=== PATIENT | female | born 1980 | race Caucasian/White ===

== ENCOUNTER → 2017-08-28 | Outpatient (CLI) | payer MEDICAID ==
[~2017-08-28] MED LIST: AMOXICILLIN 50500 MG PO; IBUPROFEN800 MG PO; IRON TABLETS325 MG OR; MOTRIN 400MG.400 MG PO; PRENATAL1 TA1 PO; PROZAC 20MG CAP20 MG PO; ZANTAC 150150 MG PO
[2017-08-28 17:10] LABS: LYMPH # 3.4 K/mm3 (0.7-4.5); LYMPH % 30.4 % (10-50.0)
[2017-08-28 17:18] LABS: HEMOGLOBIN 14.5 g/dL (12.2-16.2)
[2017-08-28 17:51] LABS: BUN 16 mg/dL (7-18)
[2017-08-28 18:01] LABS: GFR (ESTIMATED) 71 ML/MIN (59-)
[2017-08-30 08:42] LABS: Vitamin D, 25-Hydroxy 33.9 ng/mL (30.0-100.0)
[2017-08-30 10:39] LABS: Folate (Folic Acid) 10.9 ng/mL (>3.0)
== END ==
LOC: LAB 16:54
PROVIDERS: Physician Assistant
DX: Z00.00 Encounter for general adult medical examination without abnormal findings (principal)